=== PATIENT | female | born 1950 | race Caucasian/White ===

== ENCOUNTER → 2017-01-08 | Outpatient (CLI) | payer MEDICARE, OTHER ==
[~2017-01-08] MED LIST: ACETAMINOPHEN PO; ACETAMINOPHEN325 MG PO; ACTOS/MET PO; ACTOS15 MG PO; ALIGN4 MG PO; ALLEGRA PO; ALLER-FEX180 MG PO; ALLERGY SHOTS WEEKLY; ASPIRIN PO; ASPIRIN81 M2 PO; ASTELIN137 MCG INH; BIOTIN1000 MCG PO; BUPROPION HCL150 M2 PO; CALCIUM 500 +1 EAC4 PO; CERTAGEN PO; CHEWABLE ASPIRI81 MG PO; CLOBETASOL 0.0560 GM TOP; DESONIDE; DEXFOL PO; DICYCLOMINE HCL20 MG PO; EPIPEN JR0.15 MG/01 INJ; EXCEDRIN MIGRAI1 TA1 PO; FERROUS GLUCON324 M1 PO; FLAGYL PO; FLAX SEED OIL1000 M1 PO; FLEXERIL PO; FLEXERIL10 MG PO; FLONASE16 GM; FLOVENT DISKUS50 MCG INH; FOLIC ACID800 MCG PO; HYDROXYZINE HCL25 M1 PO; HYZAAR 100-25 T1 TAB PO; JANUVIA PO; LANTUS100 U/ML SUBQ; LASIX20 MG PO; LEVEMIR100 UNITS/; LEVEMIR100 UNITS/ SUBQ; LORTAB 10/500 T1 TAB PO; LOSARTAN-HCTZ1 EAC3 PO; METHSCOPOLAMINE PO; METHSCOPOLAMINE5 MG PO; NASACORT AQ16.5 GM; NOVOLOG100 U/ML SUBQ; ONDANSETRON HCL4 M1 PO; ONDANSETRON ODT8 MG PO; PANTOPRAZOLE SO40 MG PO; PHENERGAN PO; PHENERGAN25 MG PO; POLYGESIC 5/5001 CAP PO; PREMARIN PO; PROTONIX PO; STOOL SOFTENER PO; TYLENOL325 M1 PO; ULORIC40 MG PO; VICODIN PO; VITAMIN B-12250 MCG PO; VITAMIN B-6 PO; VITAMIN B122500 MC1 PO; VITAMIN B650 M1 PO; VITAMIN B650 MG PO; VITAMIN C PO; VITAMIN C100 MG PO; WELLBUTRIN XL PO; ZYRTEC-D T1 TAB.SR . PO; ZYRTEC10 M2 PO; [UNRECOGNIZED DRUG - OTHER]; [UNRECOGNIZED DRUG - OTHER] PO; [UNRECOGNIZED DRUG - REMARK]
[2017-01-08 15:38] LABS: BUN/CREATININE RATIO 15.71; CREATININE SERUM 1.4 mg/dL (0.6-1.4); GLOM FILT RATE Estimated 39.1 mL/min (>60); POTASSIUM 3.4 mmol/L (3.5-5.1)
== END | disposition home or self-care (01) ==
LOC: CLAB 14:22
PROVIDERS: Internal Medicine Cardiovascular Disease
DX: I35.0 Nonrheumatic aortic (valve) stenosis (principal)
CPT/HCPCS: 36415; 80048